=== PATIENT | male | born 1985 | race African-American/Black ===

== ENCOUNTER 2020-03-24 06:35 | Emergency (ER) | payer OTHER, SELFPAY ==
[~2020-03-24] VITALS: Ht 185.4 cm; Wt 98.0 kg
[~2020-03-24 06:35] MED LIST: CIPR500T89 PO; FLAG500T PO; NO HOME MEDS; [UNRECOGNIZED DRUG - CODE] SL
[2020-03-24] MEDS ORDERED: EXCETAB44 PO (06:46)
[2020-03-24] MEDS ORDERED: CIPRODEX OTIC (08:21)
[2020-03-24] MEDS ORDERED: ACETAMINOPHEN 500 MG TAB PO ONE (08:30)
[2020-03-24 08:41] VITALS: BP 131/70
== END 2020-03-24 08:42 | disposition home or self-care (01) ==
LOC: M ED 06:35
DX: H61.23 Impacted cerumen, bilateral (principal); H60.91 Unspecified otitis externa, right ear; F43.10 Post-traumatic stress disorder, unspecified; F17.200 Nicotine dependence, unspecified, uncomplicated

== ENCOUNTER → 2020-06-20 | Outpatient (CLI) | payer MEDICAID ==
[~2020-06-20] MED LIST changes: +CIPR7.5D5 OTIC; +EXCETAB44 PO
== END ==
LOC: M OUTALCOH 08:49
PROVIDERS: ATTEND Psychiatry & Neurology Psychiatry
DX: Z03.89 Encounter for observation for other suspected diseases and conditions ruled out (principal)

== ENCOUNTER 2020-07-05 10:00 | Outpatient (RCR) | payer MEDICAID | END 2020-07-08 | LOC: M OUTALCOH 10:00 | PROVIDERS: ATTEND Psychiatry & Neurology Psychiatry | DX: F12.10 Cannabis abuse, uncomplicated (principal); Z72.0 Tobacco use ==

== ENCOUNTER 2020-08-02 10:00 | Outpatient (RCR) | payer MEDICAID | END 2020-08-08 | LOC: M OUTALCOH 10:00 | PROVIDERS: ATTEND Psychiatry & Neurology Psychiatry | DX: F12.10 Cannabis abuse, uncomplicated (principal); Z72.0 Tobacco use ==

== ENCOUNTER 2020-08-16 10:00 | Outpatient (RCR) | payer MEDICAID | END 2020-09-07 | LOC: M OUTALCOH 10:00 | PROVIDERS: ATTEND Psychiatry & Neurology Psychiatry | DX: F12.10 Cannabis abuse, uncomplicated (principal); Z72.0 Tobacco use ==

== ENCOUNTER 2024-07-11 18:55 | Emergency (ER) | payer MEDICAID, OTHER ==
[~2024-07-11] VITALS: Ht 185.4 cm; Wt 138.0 kg
[~2024-07-11 18:55] MED LIST changes: +ACET-1599 PO; -EXCETAB44 PO
[2024-07-11 19:04] VITALS: TEMP 97.1
[2024-07-11] MEDS: NS (Normal Saline) 0.9% 1,000 ML IV ONE (19:49)
[2024-07-11 19:50] VITALS: BP 146/89
[2024-07-11] MEDS: KETOROLAC 30 MG/ML 1ML VIAL IV ONE (19:50)
[2024-07-11 21:45] VITALS: BP 160/81; O2SAT 96
[2024-07-11 21:50] VITALS: O2SAT 98
== END 2024-07-11 22:06 | disposition home or self-care (01) ==
LOC: EDBD 18:55 → M ED 18:55
DX: R55 Syncope and collapse (principal); F19.10 Other psychoactive substance abuse, uncomplicated; F17.200 Nicotine dependence, unspecified, uncomplicated; F10.10 Alcohol abuse, uncomplicated; Z79.2 Long term (current) use of antibiotics; Z79.899 Other long term (current) drug therapy; Z79.1 Long term (current) use of non-steroidal anti-inflammatories (NSAID)
CPT/HCPCS: 70450; 72125; 96361; 96374; 99284; J1885

== ENCOUNTER 2025-02-14 16:31 | Emergency (ER) | payer OTHER ==
[~2025-02-14] VITALS: Ht 185.4 cm; Wt 139.2 kg
[2025-02-14 17:34] LABS: PLATELET COUNT, AUTOMATED 388 10^3/uL (150-450)
[2025-02-14 17:52] LABS: ERYTHROCYTE SEDIMENTATION RATE 18 mm/hr (0-15)
[2025-02-14 18:03] LABS: C REACTIVE PROTEIN QUANTITATIV 4.07 MG/DL (<1.0); CALCIUM LEVEL 9.1 MG/DL (8.5-10.1); CARBON DIOXIDE LEVEL 27 MMOL/L (20-31); CHLORIDE LEVEL 100 MMOL/L (98-107); CREATININE FOR GFR 0.88 MG/DL (0.70-1.30); GLOMERULAR FILTRATION RATE > 90.0 (>60); POTASSIUM SERUM 3.9 MMOL/L (3.5-5.1); SODIUM LEVEL 137 MMOL/L (136-145)
[2025-02-14 21:15] VITALS: BP 142/73; O2SAT 91
[2025-02-14] MEDS ORDERED: SULF1TAB23 PO (21:24)
[2025-02-14 21:36] VITALS: TEMP 98.2
[2025-02-14] MEDS: BACTRIM 160MG/800MG DS TAB PO ONE (21:46)
[2025-02-14] MEDS: KETOROLAC 30 MG/ML 1 ML VIAL IV ONE (21:48)
== END 2025-02-14 22:12 | disposition home or self-care (01) ==
LOC: M ED 16:31
DX: L03.115 Cellulitis of right lower limb (principal); F17.200 Nicotine dependence, unspecified, uncomplicated; Z79.2 Long term (current) use of antibiotics; Z79.1 Long term (current) use of non-steroidal anti-inflammatories (NSAID); Z79.899 Other long term (current) drug therapy
CPT/HCPCS: 80048; 83605; 85027; 85652; 86140; 87040; 93971; 96374; 99284; J1885

== ENCOUNTER 2025-04-08 18:39 | Emergency (ER) | payer OTHER ==
[~2025-04-08] VITALS: Ht 185.4 cm; Wt 137.8 kg
[~2025-04-08 18:39] MED LIST changes: +SULF-7 PO
[2025-04-08 21:52] LABS: BASO # 0.1 10^3/uL (0.0-0.2); BASO % 0.6 % (0.0-1.0); EOS # 0.4 10^3/uL (0.0-0.5); EOS % 2.0 % (0.0-3.0); LYMPH # 3.0 10^3/uL (1.5-5.0); LYMPH % 17.1 % (24.0-44.0); MONO # 1.3 10^3/uL (0.0-0.8); MONO % 7.2 % (2.0-8.0); NEUTROPHILS # 12.8 10^3/uL (1.5-8.5); NEUTROPHILS % 72.6 % (36.0-66.0); PLATELET COUNT, AUTOMATED 455 10^3/uL (150-450)
[2025-04-08 22:23] LABS: C REACTIVE PROTEIN QUANTITATIV 0.94 MG/DL (<1.0); CALCIUM LEVEL 8.3 MG/DL (8.5-10.1); CARBON DIOXIDE LEVEL 25 MMOL/L (20-31); CHLORIDE LEVEL 107 MMOL/L (98-107); CREATININE FOR GFR 0.91 MG/DL (0.70-1.30); GLOMERULAR FILTRATION RATE > 90.0 (>60); POTASSIUM SERUM 4.4 MMOL/L (3.5-5.1); SODIUM LEVEL 140 MMOL/L (136-145)
[2025-04-09] MEDS: DALBAVANCIN 1,500 MG in D5W 250 ML IV ONE (00:05)
[2025-04-09 00:30] VITALS: BP 135/82; TEMP 97.9; O2SAT 97
== END 2025-04-09 01:12 | disposition home or self-care (01) ==
LOC: M ED 18:39 → EDUNIT# 18:39 → EDBD 18:39 → M ED 04-09 01:12
DX: L03.115 Cellulitis of right lower limb (principal); F12.10 Cannabis abuse, uncomplicated; F10.10 Alcohol abuse, uncomplicated; Z79.1 Long term (current) use of non-steroidal anti-inflammatories (NSAID); Z79.2 Long term (current) use of antibiotics; Z79.899 Other long term (current) drug therapy
CPT/HCPCS: 80048; 85025; 85652; 86140; 87040; 93971; 96374; 99284; J0875